=== PATIENT | male | born 1995 | race Caucasian/White ===

== ENCOUNTER 2017-02-18 19:04 | Emergency (ER) | payer BC ==
[~2017-02-18 19:04] MED LIST: FLEXERIL5 MG PO; PRILOSEC20 MG PO; VOLTAREN50 M1 PO
[2017-02-18 19:38] LABS: BASO % 0.6 % (0.0-1.0); EOS # 0.3 10*3/uL (0.0-0.4); EOS % 4.6 % (1.0-4.0); HEMATOCRIT 39.8 % (42.0-52.0); HEMOGLOBIN 13.6 g/dl (14.0-18.0); LYMPH # 2.8 10*3/uL (1.3-4.4); LYMPH % 43.3 % (27.0-41.0); MEAN CELL VOLUME 88.8 fl (80.0-94.0); MEAN CORPUSCULAR HGB 30.4 pg (27.0-31.0); MEAN CORPUSCULAR HGB CONC 34.2 g/dl (33.0-37.0); MEAN PLATELET VOLUME 9.5 fl (9.6-12.3); MONO # 0.7 10*3/uL (0.1-1.0); MONO % 10.1 % (3.0-9.0); NEUT # 2.7 10*3/uL (2.3-7.9); NEUT % 41.2 % (47.0-73.0); PLATELET COUNT AUTOMATED 282 10*3/uL (130-400); RED BLOOD COUNT 4.48 10*6/uL (4.50-5.90); RED CELL DISTRI WIDTH 12.4 % (0-14.5); WHITE BLOOD COUNT 6.5 10*3/uL (4.8-10.8)
[2017-02-18 19:52] LABS: ACETAMINOPHEN (TYLENOL) 2.4 ug/ml (10-30); ALBUMIN 4.2 gm/dl (3.1-4.5); ALKALINE PHOSPHATASE 128 U/L (45-117); BUN 12 mg/dl (7-24); CHLORIDE 106 mmol/L (98-107); CREATININE 1.26 mg/dL (0.70-1.30); POTASSIUM 3.8 mmol/L (3.5-5.1); SGOT/AST 22 IU/L (3-35); SGPT/ALT 18 U/L (12-78); SODIUM 142 mmol/L (136-145); TOTAL PROTEIN 7.8 gm/dL (6.4-8.2)
[2017-02-18 19:53] LABS: ETHYL ALCOHOL < 3.0 mg/dl (<3)
[2017-02-18 19:58] LABS: BILIRUBIN NEGATIVE (NEGATIVE); BLOOD NEGATIVE (NEGATIVE); CLARITY CLEAR (CLEAR); COLOR YELLOW (YELLOW); GLUCOSE NEGATIVE (NEGATIVE); KETONE TRACE (NEGATIVE); LEUKO ESTERASE NEGATIVE (NEGATIVE); NITRITE NEGATIVE (NEGATIVE); PH 5.5 (5.0-9.0); SPECIFIC GRAVITY >= 1.030 (1.005-1.030); UROBILINOGEN 0.2 E.U./dl (0.2-1.0)
[2017-02-18 20:06] LABS: MUCOUS 2+
[2017-02-18 20:07] LABS: URINE AMPHETAMINES < 1000 (1000ng/ml); URINE BARBITURATES < 200 (200ng/ml); URINE BENZODIAZEPINES > 200 (200ng/ml); URINE CANNABINOIDS (THC) > 50 (50ng/ml); URINE COCAINE > 300 (300ng/ml); URINE METHADONE < 300 (300ng/ml); URINE OPIATES > 300 (300ng/ml)
[2017-02-18 20:08] LABS: URINE PHENCYCLIDINE < 25 (25ng/ml)
[2017-02-19 09:01] VITALS: BP 108/58
== END 2017-02-19 15:49 | disposition home or self-care (01) ==
LOC: ED 19:04
PROVIDERS: Student in an Organized Health Care Education/Training Program
DX: F19.10 Other psychoactive substance abuse, uncomplicated (principal); R45.86 Emotional lability; F41.9 Anxiety disorder, unspecified; Z88.6 Allergy status to analgesic agent; Z79.899 Other long term (current) drug therapy

== ENCOUNTER 2017-06-22 13:08 | Inpatient (IN) | payer BC ==
[~2017-06-22] VITALS: Ht 172.7 cm; Wt 60.0 kg
[2017-06-22 14:10] VITALS: BP 117/67
--- NOTE | 2017-06-22 14:10 | NUR ---
22 year old male admitted to room # 416 for stabilization. Reports an addiction to heroin last used yesterday prior to admission. Compliant with admission procedure. See assessment forms for additional information about patient status.
--- NOTE | 2017-06-22 14:40 | NUR ---
PATIENT WANTS TO FOLLOW-UP WITH [employer] FOR HIS AFTERCARE PLAN. MORGAN ROMERO B.A. [employer]
[2017-06-22 14:51] LABS: BASO % 0.1 % (0.0-1.0); HEMOGLOBIN 14.4 g/dl (14.0-18.0); LYMPH # 0.9 10*3/uL (1.3-4.4); LYMPH % 9.2 % (27.0-41.0); MEAN CELL VOLUME 88.5 fl (80.0-94.0); MEAN CORPUSCULAR HGB 29.6 pg (27.0-31.0); MEAN CORPUSCULAR HGB CONC 33.5 g/dl (33.0-37.0); MEAN PLATELET VOLUME 10.3 fl (9.6-12.3); MONO # 0.4 10*3/uL (0.1-1.0); MONO % 4.7 % (3.0-9.0); NEUT % 85.7 % (47.0-73.0); PLATELET COUNT AUTOMATED 215 10*3/uL (130-400); RED BLOOD COUNT 4.86 10*6/uL (4.50-5.90); RED CELL DISTRI WIDTH 13.2 % (0-14.5); WHITE BLOOD COUNT 9.3 10*3/uL (4.8-10.8)
[2017-06-22 14:58] LABS: BILIRUBIN 1+ (NEGATIVE); BLOOD TRACE-LYSED (NEGATIVE); CLARITY CLEAR (CLEAR); COLOR YELLOW (YELLOW); GLUCOSE NEGATIVE (NEGATIVE); KETONE 1+ (NEGATIVE); LEUKO ESTERASE NEGATIVE (NEGATIVE); NITRITE NEGATIVE (NEGATIVE); PH 6.5 (5.0-9.0); SPECIFIC GRAVITY 1.025 (1.005-1.030)
[2017-06-22 15:08] LABS: URINE AMPHETAMINES < 1000 (1000ng/ml); URINE BARBITURATES < 200 (200ng/ml); URINE BENZODIAZEPINES > 200 (200ng/ml); URINE CANNABINOIDS (THC) > 50 (50ng/ml); URINE COCAINE > 300 (300ng/ml)
[2017-06-22 15:08] LABS: ALBUMIN 4.6 gm/dl (3.1-4.5); ALKALINE PHOSPHATASE 132 U/L (45-117); BUN 12 mg/dl (7-24); CHLORIDE 104 mmol/L (98-107); POTASSIUM 3.7 mmol/L (3.5-5.1); SGOT/AST 18 IU/L (3-35); SGPT/ALT 16 U/L (12-78); SODIUM 140 mmol/L (136-145); TOTAL PROTEIN 8.4 gm/dL (6.4-8.2)
[2017-06-22 15:11] LABS: URINE METHADONE < 300 (300ng/ml); URINE OPIATES > 300 (300ng/ml)
[2017-06-22 15:12] LABS: BACTERIA TRACE; MUCOUS 1+
[2017-06-22 15:15] LABS: URINE PHENCYCLIDINE < 25 (25ng/ml)
[2017-06-22 15:15] LABS: ETHYL ALCOHOL < 3.0 mg/dl (<3)
[2017-06-22 15:22] VITALS: BP 117/69
[2017-06-22 16:00] VITALS: BP 112/54
--- NOTE | 2017-06-22 19:52 | NUR ---
Patient reports the following symptoms of withdrawal: body aches, leg pain, nausea and cocaine cravings. Patient given scheduled/PRN medication to control withdrawal symptoms. Close observation will be maintained.
[2017-06-22 20:00] VITALS: BP 115/76
--- NOTE | 2017-06-22 21:00 | NUR ---
Patient resting quietly in bed with eyes closed. PRN medications effective. Will continue to monitor. Call light within reach.
[2017-06-23] VITALS: BP 114/74
--- NOTE | 2017-06-23 00:58 | NUR ---
24 HR chart check completed.
[2017-06-23 04:00] VITALS: BP 114/72
--- NOTE | 2017-06-23 06:00 | NUR ---
Asked patient if he needed any medication for withdrawal symptoms. He said "no."
[2017-06-23 08:00] VITALS: BP 127/75
--- NOTE | 2017-06-23 08:00 | NUR ---
PT COMPLAINS OF GENERALIZED WITHDRAWL SYMPTOMS, ACHE, STOMACH UPSET, ANXIETY. PRN GIVEN. SEE MAR. WILL MONITOR FOR EFFECTIVENESS. PT AWARE TO NOT LEAVE FLOOR. WILL MONITOR FOR FURTHUR NEEDS.
--- NOTE | 2017-06-23 08:28 | NUR ---
Shift chart check completed.
--- NOTE | 2017-06-23 09:00 | NUR ---
PT STATES ANXIETY CONTINUES. AWARE RECEIVED ALL PRN MEDICATION ALREADY THIS MORNING. CONTINUE TO MONITOR
--- NOTE | 2017-06-23 10:45 | NUR ---
PT REQUESTED TO SIGN OUT AMA. PT UNDERSTANDS RISKS ASSOCIATED WITH SIGNING OUT AMA. PHYSICIAN NOTIFIED
== END 2017-06-23 10:45 | disposition left against medical advice (07) | DRG 894 ==
LOC: 4E 13:08
PROVIDERS: Registered Nurse; ADMIT Emergency Medicine
DX: F11.23 Opioid dependence with withdrawal (principal); Z53.21 Procedure and treatment not carried out due to patient leaving prior to being seen by health care provider; K21.9 Gastro-esophageal reflux disease without esophagitis; Z72.0 Tobacco use; Z88.5 Allergy status to narcotic agent; Z79.899 Other long term (current) drug therapy; Z71.6 Tobacco abuse counseling